=== PATIENT | female | born 1995 | race African-American/Black ===

== ENCOUNTER 2024-06-11 01:16 | Emergency (ER) | payer MEDICAID, OTHER ==
[~2024-06-11] VITALS: Ht 175.3 cm; Wt 65.8 kg
[2024-06-11 01:58] LABS: BASOPHILS % (AUTO) 0.4 % (0.0-2.0); EOSINOPHILS % (AUTO) 0.1 % (0.0-6.0); HEMATOCRIT 34 % (33-45); HEMOGLOBIN 11.2 g/dL (11.5-14.8); LYMPHOCYTES # (AUTO) 0.7 K/uL (0.8-4.8); LYMPHOCYTES % (AUTO) 8.8 % (20.0-44.0); MEAN CORPUSCULAR HEMOGLOBIN 26 PG (26.0-33.0); MEAN CORPUSCULAR HGB CONC 33 g/dl (31.0-36.0); MEAN CORPUSCULAR VOLUME 80 fL (82-100); MONOCYTES # (AUTO) 0.9 K/uL (0.1-1.30); MONOCYTES % (AUTO) 10.6 % (2.0-12.0); NEUTROPHILS # (AUTO) 6.7 K/uL (1.8-8.9); NEUTROPHILS % (AUTO) 80.1 % (43.0-81.0); PLATELET COUNT (AUTO) 205 K/uL (150-450); RED CELL DISTRIBUTION WIDTH 13.4 % (11.5-15.0); WHITE BLOOD COUNT (AUTO) 8.3 K/uL (4.3-11.0)
[2024-06-11 02:10] LABS: CALCIUM, SERUM 8.5 mg/dL (8.5-10.1); CARBON DIOXIDE 27 mmol/L (21-32); CHLORIDE 100 mmol/L (98-107); CREATININE 0.8 mg/dL (0.6-1.3); GLUCOSE 102 mg/dL (74-106); POTASSIUM 3.8 mmol/L (3.5-5.1); SODIUM SERUM 131 mmol/L (136-145); UREA NITROGEN, BLOOD 9 mg/dL (7-18)
[2024-06-11 02:17] LABS: ALANINE AMINOTRANSFERASE 26 U/L (12-78); ALBUMIN 3.4 g/dL (3.4-5.0); ALCOHOL, BLOOD < 3 mg/dL (0-10); ALKALINE PHOSPHATASE 68 U/L (46-116); ASPARTATE AMINOTRANSFERASE 31 U/L (15-37); BILIRUBIN,TOTAL 0.3 mg/dL (0.2-1.0)
[2024-06-11 02:19] LABS: ACETAMINOPHEN <10 ug/ml (10-30); SALICYLATE 0.8 mg/dL (2.8-20.0)
[2024-06-11 06:16] LABS: APPEARANCE,URINE CLEAR (CLEAR); BILIRUBIN,URINE NEGATIVE (NEGATIVE); BLOOD, URINE NEGATIVE Ery/uL (NEGATIVE); COLOR,URINE YELLOW (YELLOW); KETONES,URINE TRACE mg/dL (NEGATIVE); LEUKOCYTE ESTERASE ,URINE TRACE (NEGATIVE); NITRITE, URINE NEGATIVE (NEGATIVE); PROTEIN,URINE TRACE mg/dl (NEGATIVE); UGLUCOSE NEGATIVE (NEGATIVE); UROBILINOGEN,URINE 0.2 EU/dL (0.2)
[2024-06-11 06:22] LABS: BARBITURATE, URINE NEGATIVE (NEGATIVE); BENZODIAZEPINE, URINE NEGATIVE (NEGATIVE); COCCAINE, URINE NEGATIVE (NEGATIVE); OPIATE, URINE NEGATIVE (NEGATIVE); PHENCYCLIDINE SCREEN,URINE NEGATIVE (NEGATIVE)
[2024-06-11 06:23] LABS: AMPHETAMINE, URINE POSITIVE (NEGATIVE); CANNABINOID, URINE POSITIVE (NEGATIVE)
[2024-06-11 06:30] LABS: ADD URINE CULTURE YES; BACTERIA,URINE 1+ /HPF (None Seen); RBC,URINE 0-2 /HPF (0-2)
[2024-06-11 07:32] LABS: PREGNANCY TEST URINE QUAL NEGATIVE (NEGATIVE)
[2024-06-11] MEDS ORDERED: CEPH500T PO (11:11)
[2024-06-11] MEDS ORDERED: CEPHALEXIN MONOHYDRATE 500 MG CAPSULE PO ONE (11:15)
[2024-06-11] MEDS: CEPHALEXIN MONOHYDRATE 500 MG CAPSULE PO ONE (11:16)
[2024-06-11 11:24] VITALS: BP 124/80; TEMP 98.5; O2SAT 99
== END 2024-06-11 11:24 | disposition home or self-care (01) ==
LOC: ER 01:18
DX: R42 Dizziness and giddiness (principal); R10.2 Pelvic and perineal pain; Z20.822 Contact with and (suspected) exposure to COVID-19; Z59.00 Homelessness unspecified
CPT/HCPCS: 36415; 80053-TC; 81001; 84702-TC; 84703-TC; 85025-TC; 87086-TC; G0480